=== PATIENT | female | born 1980 | race African-American/Black ===

== ENCOUNTER 2018-12-06 18:13 | Emergency (ER) | payer SELFPAY ==
[~2018-12-06] VITALS: Ht 165.1 cm; Wt 55.0 kg
[2018-12-06] MEDS ORDERED: SODIUM CHLORIDE 0.9% 1,000 ML IV ONE (18:40)
[2018-12-06] MEDS ORDERED: LORAZEPAM 2MG/ML CPJ IV STA (18:40)
[2018-12-06] MEDS ORDERED: METHYLPREDNISOLONE SOD SUCC 125 MG/2 ML VIAL IV STA (18:44)
[2018-12-06] MEDS ORDERED: IPRATROPIUM/ALBUTEROL 0.5-3(2.5)MG/3ML NEB HHN ONE (18:45)
[2018-12-06 19:39] LABS: BASOPHILS % 0.5 % (0.0-2.0); EOSINOPHILS % 0.7 % (0.0-5.0); HEMATOCRIT. 30.9 % (36.0-48.0); HEMOGLOBIN. 9.4 g/dL (12.0-16.0); LYMPHOCYTES % 26.2 % (20.0-50.0); MEAN CORPUSCULAR VOLUME 68.8 fL (81.0-99.0); MEAN PLATELET VOLUME 6.9 fl (7.4-10.4); MONOCYTES % 7.1 % (2.0-8.0); NEUTROPHILS % 65.5 % (40.0-76.0); PLATELET 312 x1000/uL (130-400); RED BLOOD CELL COUNT 4.49 mill/uL (4.2-5.4); RED CELL DISTRIBUTION WIDTH 19.5 % (11.6-14.6)
[2018-12-06 19:42] LABS: CHLORIDE 110 mEq/L (98-107)
[2018-12-06 19:49] LABS: ETHANOL BLOOD 215 mg/dL
[2018-12-06 19:53] LABS: CARBAMAZEPINE < 0.5 ug/mL (4-12)
[2018-12-06 19:54] LABS: CREATINE KINASE 236 IU/L (26-192); CREATINE KINASE MB FRACTION 1.9 ng/mL (0.5-3.6)
[2018-12-06 20:03] LABS: HCG SCREEN NEGATIVE
[2018-12-06 20:25] LABS: PHENOBARBITAL < 2.1 ug/mL (15.0-40.0)
[2018-12-06 20:34] LABS: PLATELET ESTIMATE NORMAL
[2018-12-06] MEDS ORDERED: KCL 20MEQ/100ML PREMIX 100 ML IV ONE (20:45)
[2018-12-06 22:13] LABS: CLARITY URINE CLEAR (CLEAR); COLOR URINE YELLOW (YELLOW); KETONES URINE NEGATIVE (NEGATIVE); LEUKOCYTE ESTERASE URINE NEGATIVE (NEGATIVE); NITRITE URINE NEGATIVE (NEGATIVE); OCCULT BLOOD URINE NEGATIVE (NEGATIVE); PH URINE 5.5 (4.5-8.0); PROTEIN URINE NEGATIVE (NEGATIVE); SPECIFIC GRAVITY URINE 1.018 (1.005-1.030); UROBILINOGEN URINE 0.2 E.U./dL (0.2-1.0)
[2018-12-06 22:39] LABS: *AMPHETAMINES SCREEN URINE NEGATIVE (NEGATIVE); *BARBITURATES SCREEN URINE NEGATIVE (NEGATIVE)
[2018-12-06 22:40] LABS: METHADONE URINE SCREEN NEGATIVE (NEGATIVE); OPIATES URINE SCREEN NEGATIVE (NEGATIVE)
[2018-12-06 22:43] LABS: *BENZODIAZEPINES SCREEN URINE PRESUMTIVE POSITIVE (NEGATIVE); *COCAINE SCREEN URINE PRESUMTIVE POSITIVE (NEGATIVE); CANNABINOID URINE SCREEN PRESUMTIVE POSITIVE (NEGATIVE); PHENCYCLIDINE URINE SCREEN PRESUMTIVE POSITIVE (NEGATIVE)
[2018-12-06] MEDS ORDERED: OLANZAPINE 10 MG/VIAL IM ONE (23:15)
[2018-12-06] MEDS ORDERED: LORAZEPAM 2MG/ML CPJ IV ONE (23:15)
[2018-12-07] MEDS ORDERED: LORAZEPAM 2MG/ML CPJ IM ONE (05:45)
[2018-12-07 09:30] VITALS: BP 121/65
== END 2018-12-07 10:00 | disposition home or self-care (01) ==
LOC: EDBD 18:13 → ER 18:13
DX: T51.0X1A Toxic effect of ethanol, accidental (unintentional), initial encounter (principal); G92 Toxic encephalopathy; E87.6 Hypokalemia; J40 Bronchitis, not specified as acute or chronic; F14.10 Cocaine abuse, uncomplicated; F15.10 Other stimulant abuse, uncomplicated; F16.10 Hallucinogen abuse, uncomplicated; F12.10 Cannabis abuse, uncomplicated; F29 Unspecified psychosis not due to a substance or known physiological condition; F91.8 Other conduct disorders; Z78.1 Physical restraint status; Z79.899 Other long term (current) drug therapy
CPT/HCPCS: 36415; 70450; 71045; 80053; 80156; 80165; 80184; 80185; 80305; 80307; 80320; 80329; 81003; 82140; 82550; 82553; 83690; 83880; 84443; 84484; 84703; 85025; 85610; 93005; 94640; 96372; 96374; 96375; 99284; J2060; J2930; J3480; J3490; J7030; J7620; G0480